=== PATIENT | female | born 1995 | race Caucasian/White ===

== ENCOUNTER 2019-03-09 12:07 | Emergency (ER) | payer OTHER ==
[2019-03-09 13:57] VITALS: BP 102/64
--- NOTE | 2019-03-09 14:30 | UC ---
Throat Pain/Nasal Dany HPI - HPI Summary HPI Summary: 23-year-old college female who has been on amoxicillin for the past 7 days for sinus infection which started his allergies and upper respiratory illness 1 month ago. She continues to have sinus pressure with greenish yellow nasal coryza. - History of Current Complaint Chief Complaint: UCRespiratory Stated Complaint: UPPER RESP CONCERN Time Seen by Provider: 03/09/19 14:30 Hx Obtained From: Patient Hx Last Menstrual Period: 02/26/19 ?: No Onset/Duration: Gradual Onset Severity: Moderate Pain Intensity: 6 Cough: Nonproductive Associated Signs & Symptoms: Positive: Sinus Discomfort, Nasal Discharge Related History: Seasonal Allergies - Allergies/Home Medications Allergies/Adverse Reactions: Allergies Allergy/AdvReac Type Severity Reaction Status Date / Time dust Allergy Eyes Uncoded 03/09/19 13:58 Itchy/Swollen/Red/Watery Home Medications: Home Medications Amoxicillin 875 mg PO BID 03/09/19 [History Confirmed 03/09/19] Iud 1 unit IU DAILY 03/09/19 [History Confirmed 03/09/19] Oxymetazoline 0.05% NASAL SPR* [Afrin 0.05% NASAL SPRAY*] 1 spray NASAL Q12H PRN 03/09/19 [History Confirmed 03/09/19] Vicks Moisturing Decongestant 1 dose BOTH NARES TID PRN 03/09/19 [History Confirmed 03/09/19] Zytec 1 dose PO DAILY 03/09/19 [History Confirmed 03/09/19] PMH/Surg Hx/FS Hx/Imm Hx Previously Healthy: Yes - Surgical History Surgical History: Yes Surgery Procedure, Year, and Place: tonsillectomy - Family History Known Family History: Positive: None - Social History Occupation: Student Lives: Dormitory/Roommates Alcohol Use: Weekly Alcohol Amount: 8 Substance Use Type: None Smoking Status (MU): Never Smoked Tobacco Type: eCigarettes Length of Time of Smoking/Using Tobacco: 12/2018 - Immunization History Vaccination Up to Date: Yes Review of Systems All Other Systems Reviewed And Are Negative: Yes ENT: Positive: Nasal Discharge, Sinus Congestion, Sinus Pain/Tenderness Is Patient Immunocompromised?: No Physical Exam Triage Information Reviewed: Yes Appearance: Well-Appearing, No Pain Distress, Well-Nourished Vital Signs: Initial Vital Signs Temp 97.9 F 03/09/19 13:47 Pulse 75 03/09/19 13:47 Resp 18 03/09/19 13:47 BP 102/64 03/09/19 13:47 Pulse Ox 99 03/09/19 13:47 Vital Signs Reviewed: Yes Eyes: Positive: Conjunctiva Clear ENT: Positive: Hearing grossly normal, Pharynx normal, Nasal congestion, Nasal drainage - Yellowish-green nasal coryza both nostrils., TMs normal, Sinus tenderness, Uvula midline Neck: Positive: Supple, Nontender, No Lymphadenopathy Respiratory: Positive: Lungs clear, Normal breath sounds, No respiratory distress, No accessory muscle use Cardiovascular: Positive: RRR, No Murmur, Pulses Normal, Brisk Capillary Refill Musculoskeletal Exam: Normal Neurological Exam: Normal Psychological Exam: Normal Skin Exam: Normal Throat Pain/Nasal Course/Dx - Course Course Of Treatment: I'm going to have the patient stop the amoxicillin and start doxycycline 100 mg by mouth twice a day 7 days. I'm also going to start her on Flonase because she is in a [employer] house which has a lot of dust to which she is allergic. She is to follow up with [facility], [place] as needed. - Differential Dx/Diagnosis Provider Diagnosis: Sinusitis Discharge ED - Sign-Out/Discharge Documenting (check all that apply): Patient Departure All imaging exams completed and their final reports reviewed: No Studies - Discharge Plan Condition: Good Disposition: HOME Prescriptions: DOXYcycline CAP(*) [DOXYcycline 100MG CAP(*)] 100 mg PO BID 7 Days #14 cap Fluticasone NASAL SPRAY 50MCG* [Flonase NASAL SPRAY 50MCG*] 2 spray BOTH NARES DAILY 7 Days #1 btl Patient Education Materials: Sinusitis (ED) Referrals: No Primary Care Phys,NOPCP [Primary Care Provider] - CHING MCMAHAN [Z.BUSINESS, APPLICATION, OTHER] - Additional Instructions: Increase fluids, No dairy products, antacids, multivitamins 2 hours before you take the Doxycycline and 2 hours after you take it but take it with food. Follow up at the [facility] [place] if no improvement in 4 or 5 days. Stop your amoxicillin. - Billing Disposition and Condition Condition: GOOD Disposition: Home - Attestation Statements Provider Attestation: Per institutional requirements, I have reviewed the chart, however, I was not consulted specifically or made aware of this patient by the midlevel provider. I did not personally evaluate, interact with , or disposition this patient.
== END 2019-03-09 14:51 | disposition home or self-care (01) ==
LOC: UCCORT 12:07
DX: J32.9 Chronic sinusitis, unspecified (principal)
CPT/HCPCS: 99212; G0463